=== PATIENT | male | born 1965 | race Caucasian/White ===

== ENCOUNTER 2018-11-12 09:28 | Day surgery (SDC) | payer BC ==
[~2018-11-12] VITALS: Ht 175.3 cm; Wt 141.4 kg
[2018-11-12] MEDS: NS 1,000 ML IV ONE (06:45)
[~2018-11-12 09:28] MED LIST: AMLO5TAB6 PO; ATOR40TA75 PO; FLAX100012 PO; GLYB3TA PO; HYDR25TAB PO; INVO100T PO; METF10004 PO; PROPOFOL 200 MG/20 ML VIAL As Ordered ONE; QUIN1TAB4 PO; TRUL0.5I SC; TRUS1SOL OU; XALA0.007 OU
--- NOTE | 2018-11-12 11:24 | ROOR ---
Patient Name: Kevin Johnson Procedure Date: 11/12/2018 10:48 AM Date of : 1965 Age: 53 Room: [facility] Gender: Male Note Status: Finalized Procedure: Colonoscopy Indications: Screening for colorectal malignant neoplasm Providers: Puneet Núñez Jr, MD Referring MD: Robbie Tovar MD Requesting Provider: Medicines: Propofol per Anesthesia Complications: No immediate complications. Procedure: Pre-Anesthesia Assessment: - Prior to the procedure, a History and Physical was performed, and patient medications and allergies were reviewed. The patient is competent. The risks and benefits of the procedure and the sedation options and risks were discussed with the patient. All questions were answered and informed consent was obtained. Patient identification and proposed procedure were verified by the physician and the nurse in the pre-procedure area and in the procedure room. Mental Status Examination: alert and oriented. Airway Examination: normal oropharyngeal airway and neck mobility. Respiratory Examination: clear to auscultation. CV Examination: normal. ASA Grade Assessment: II - A patient with mild systemic disease. After reviewing the risks and benefits, the patient was deemed in satisfactory condition to undergo the procedure. The anesthesia plan was to use moderate sedation / analgesia (conscious sedation). Immediately prior to administration of medications, the patient was re-assessed for adequacy to receive sedatives. The heart rate, respiratory rate, oxygen saturations, blood pressure, adequacy of pulmonary ventilation, and response to care were monitored throughout the procedure. The physical status of the patient was re-assessed after the procedure. The Colonoscope was introduced through the anus and advanced to the cecum, identified by appendiceal orifice and ileocecal valve. The colonoscopy was performed without difficulty. The patient tolerated the procedure well. The quality of the bowel preparation was adequate. Findings: The rectum, descending colon, cecum and ileocecal valve appeared normal. Seven polyps were found in the recto-sigmoid colon, sigmoid colon, transverse colon and ascending colon. The polyps were small in size. These polyps were removed with a cold snare. Resection and retrieval were complete. For hemostasis, one hemostatic clip was successfully placed. There was no bleeding at the end of the procedure. Impression: - The rectum, descending colon, cecum and ileocecal valve are normal. - Seven small polyps at the recto-sigmoid colon, in the sigmoid colon, in the transverse colon and in the ascending colon, removed with a cold snare. Resected and retrieved. Clip was placed. Recommendation: - Discharge patient to home (ambulatory). - Repeat colonoscopy in 3 - 5 years for surveillance. Puneet Núñez MD Puneet Núñez Jr, MD 11/12/2018 11:23:53 AM Electronically signed by Puneet Núñez Jr, MD Number of Addenda: 0 Note Initiated On: 11/12/2018 10:48 AM Estimated Blood Loss: Estimated blood loss: none.
[2018-11-12 11:48] VITALS: BP 170/90
== END 2018-11-12 11:52 | disposition home or self-care (01) ==
LOC: M OPP 09:28
PROVIDERS: ATTEND Surgery
DX: D12.5 Benign neoplasm of sigmoid colon (principal); D12.7 Benign neoplasm of rectosigmoid junction; D12.2 Benign neoplasm of ascending colon; D12.3 Benign neoplasm of transverse colon; Z12.11 Encounter for screening for malignant neoplasm of colon

== ENCOUNTER → 2021-12-10 | Outpatient (CLI) | payer OTHER ==
[~2021-12-10] MED LIST changes: +AMLO1TAB24 PO; -AMLO5TAB6 PO; +FARX1TAB3 PO; -GLYB3TA PO; +GLYB3TAB2 PO; +HYDR-3490 PO; -HYDR25TAB PO; -PROPOFOL 200 MG/20 ML VIAL As Ordered ONE
== END ==
LOC: M LABSMTC 09:40
PROVIDERS: ATTEND Anesthesiology
DX: Z01.812 Encounter for preprocedural laboratory examination (principal); Z20.822 Contact with and (suspected) exposure to COVID-19

== ENCOUNTER 2021-12-13 06:57 | Day surgery (SDC) | payer OTHER ==
[~2021-12-13] VITALS: Ht 175.3 cm; Wt 138.8 kg
[~2021-12-13 06:57] MED LIST changes: +NS 1,000 ML IV ONE
[2021-12-13] MEDS ORDERED: propofoL 200 MG/20 ML VIAL As Ordered ONE ×2 (07:54→08:30)
[2021-12-13] MEDS ORDERED: LIDOCAINE 2% 100MG/5ML SDV (FOR ANES.) As Ordered ONE (07:54)
[2021-12-13 09:00] VITALS: BP 168/93
== END 2021-12-13 09:10 | disposition home or self-care (01) ==
LOC: M OPP 06:57
PROVIDERS: ATTEND Surgery
DX: Z12.11 Encounter for screening for malignant neoplasm of colon (principal); Z86.010 Personal history of colon polyps; Z80.0 Family history of malignant neoplasm of digestive organs; K63.5 Polyp of colon; K62.1 Rectal polyp; K57.30 Diverticulosis of large intestine without perforation or abscess without bleeding; Z85.47 Personal history of malignant neoplasm of testis; Z80.3 Family history of malignant neoplasm of breast; Z80.42 Family history of malignant neoplasm of prostate; Z80.52 Family history of malignant neoplasm of bladder; E11.9 Type 2 diabetes mellitus without complications; Z79.84 Long term (current) use of oral hypoglycemic drugs; Z79.899 Other long term (current) drug therapy

== ENCOUNTER → 2023-10-15 | Outpatient (REF) | payer OTHER ==
[~2023-10-15] MED LIST changes: -NS 1,000 ML IV ONE
== END ==
LOC: M LAB REF 16:15
PROVIDERS: ATTEND Family Medicine
DX: E80.0 Hereditary erythropoietic porphyria (principal)

== ENCOUNTER → 2024-11-23 | Outpatient (REF) | payer BC ==
[~2024-11-23] MED LIST changes: +BAYE81TA10 PO; +DORZ2SOL20 OU; +DULA3PEN SQ; +LOSA100T46 PO; +PRESCAP PO
[2024-11-23 12:58] LABS: APPEARANCE, URINE CLEAR (CLEAR); BACTERIA, URINE AUTO NEGATIVE (NEGATIVE); BILIRUBIN, URINE AUTO NEGATIVE (NEGATIVE); BLOOD, URINE BLOOD NEGATIVE (NEGATIVE); CALCIUM OXALATE CRYSTALS SMALL; COLOR, URINE YELLOW (YELLOW); GLUCOSE, URINE (UA) AUTO 3+ mg/dL (NEGATIVE); KETONE, URINE AUTO NEGATIVE (NEGATIVE); LEUKOCYTE ESTERASE, URINE AUTO TRACE (NEGATIVE); MUCUS, URINE SMALL (NEGATIVE); NITRITE, URINE AUTO NEGATIVE (NEGATIVE); PROTEIN, URINE AUTO NEGATIVE (NEGATIVE); RBC, URINE AUTO 4 /HPF (0-3); SPECIFIC GRAVITY URINE AUTO 1.027 (1.002-1.035); SQUAMOUS EPITHELIAL CELL UR AU 0 /HPF (0-6); UROBILINOGEN, URINE AUTO 0.2 mg/dL (0.0-2.0); WBC, URINE AUTO 17 /HPF (0-3)
== END ==
LOC: M LAB REF 11:55
PROVIDERS: ATTEND Family Medicine
DX: Z01.818 Encounter for other preprocedural examination (principal)

== ENCOUNTER 2024-12-01 13:04 | Day surgery (SDC) | payer BC ==
[~2024-12-01] VITALS: Ht 175.3 cm; Wt 130.6 kg
[~2024-12-01 13:04] MED LIST changes: +ceFAZolin SOD 2 GM IV ONCE IV ONE
[2024-12-01] MEDS ORDERED: GLUCOSE 4 GM CHEW PO PRN (13:15)
[2024-12-01] MEDS ORDERED: DEXTROSE 50% 50 ML SYRINGE IV PRN (13:15)
[2024-12-01] MEDS ORDERED: GLUCAGON INJ 1 MG VIAL SC PRN (13:15)
[2024-12-01] MEDS ORDERED: INSULIN LISPRO (NovoLOG) PER UNIT SC PRN (13:15)
[2024-12-01] MEDS ORDERED: ACETAMINOPHEN 1000MG/100ML IV BAG As Ordered ONE (15:22)
[2024-12-01] MEDS ORDERED: fentaNYL 100 MCG/2 ML INJECTION As Ordered ONE (15:22)
[2024-12-01] MEDS ORDERED: MIDAZOLAM INJ 2 MG/2 ML VIAL As Ordered ONE (15:22)
[2024-12-01] MEDS ORDERED: LIDOCAINE 2% 100 MG/5 ML SDV (FOR ANES.) As Ordered ONE (15:22)
[2024-12-01] MEDS ORDERED: propofoL 200 MG/20 ML VIAL As Ordered ONE (15:22)
[2024-12-01] MEDS ORDERED: dexAMETHasone 4 MG/ML 1 ML VIAL As Ordered ONE (15:23)
[2024-12-01] MEDS ORDERED: ONDANSETRON 4MG 2ML VIAL As Ordered ONE (15:23)
[2024-12-01] MEDS: ceFAZolin SOD 3 GM in DEXTROSE 5% (D5W) MINI-BAG PLU 1... IV ONE (15:43)
[2024-12-01] MEDS: ISOVUE-300 61% 100 ML VIAL As Ordered ONE (16:30)
[2024-12-01] MEDS ORDERED: LR 1,000 ML IV SCH (18:20)
[2024-12-01] MEDS ORDERED: METOCLOPRAMIDE INJ 10 MG/2 ML VIAL IV PRN (18:20)
[2024-12-01] MEDS ORDERED: MEPERIDINE 25 MG/ML 1 ML VIAL IV PRN (18:20)
[2024-12-01] MEDS ORDERED: oxyCODONE 5MG TAB PO PRN (18:20)
[2024-12-01] MEDS ORDERED: ONDANSETRON 4MG 2ML VIAL IV PRN (18:20)
[2024-12-01] MEDS ORDERED: fentaNYL 100 MCG/2 ML INJECTION IV PRN (18:20)
[2024-12-01] MEDS ORDERED: diphenhydrAMINE 50 MG/ML VIAL IV PRN (18:20)
[2024-12-01] MEDS ORDERED: OXYC1TAB23 PO (18:28)
[2024-12-01] MEDS ORDERED: TAMS-18 PO (18:28)
[2024-12-01 19:24] VITALS: BP 162/86; TEMP 97.9; O2SAT 96
== END 2024-12-01 19:32 | disposition home or self-care (01) ==
LOC: M SDC 13:04
PROVIDERS: ATTEND Urology
DX: N13.2 Hydronephrosis with renal and ureteral calculous obstruction (principal); N28.89 Other specified disorders of kidney and ureter; I10 Essential (primary) hypertension; E78.5 Hyperlipidemia, unspecified; E11.9 Type 2 diabetes mellitus without complications; Z79.899 Other long term (current) drug therapy; Z79.82 Long term (current) use of aspirin
CPT/HCPCS: 52354; 52356; 76000; 82365; 88305; C1769; C1894; C2617; J0131; J0690; J1100; J2250; J2405; J3010; Q9967

== ENCOUNTER → 2024-12-07 | Outpatient (REF) | payer BC ==
[~2024-12-07] MED LIST changes: +OXYC1TAB23 PO; +TAMS-18 PO; -ceFAZolin SOD 2 GM IV ONCE IV ONE
== END ==
LOC: M SFHCDERM 16:21
PROVIDERS: ATTEND Physician Assistant
DX: Z85.820 Personal history of malignant melanoma of skin (principal)

== ENCOUNTER → 2024-12-16 | Outpatient (CLI) | payer BC | LOC: M RAD 10:16 | PROVIDERS: ATTEND Urology | DX: N20.0 Calculus of kidney (principal); Z96.0 Presence of urogenital implants ==

== ENCOUNTER 2025-04-28 09:19 | Day surgery (SDC) | payer BC ==
[~2025-04-28] VITALS: Ht 175.3 cm; Wt 128.5 kg
[2025-04-28 10:30] VITALS: BP 160/82; TEMP 97.8; O2SAT 97
== END 2025-04-28 10:41 | disposition home or self-care (01) ==
LOC: M OPP 09:19
PROVIDERS: ATTEND Surgery
DX: Z86.0100 Personal history of colon polyps, unspecified (principal); Z79.82 Long term (current) use of aspirin; Z79.84 Long term (current) use of oral hypoglycemic drugs; Z79.4 Long term (current) use of insulin; Z79.899 Other long term (current) drug therapy

== ENCOUNTER → 2025-06-13 | Outpatient (CLI) | payer BC | LOC: M RAD 08:38 | PROVIDERS: ATTEND Urology | DX: N20.0 Calculus of kidney (principal) ==